=== PATIENT | female | born 1970 | race Caucasian/White ===

== ENCOUNTER 2021-11-08 06:36 | Day surgery (SDC) | payer OTHER ==
--- NOTE | 2021-11-06 09:30 | RAD REPORT ---
EXAM DESCRIPTION: RAD - Chest Pa And Lat (2 Views) - 11/06/2021 9:05 am CLINICAL HISTORY: Pre Op pending cholecystectomy Chest pain. COMPARISON: No comparisons FINDINGS: The lungs are clear. The heart is mildly enlarged in size. No displaced fractures.
[2021-11-06 09:36] LABS: Absolute Lymphocytes (CBC) 1.6 K/uL (0.7-4.9); Hematocrit 33.8 % (36.0-45.0); Lymphocytes % 28.1 % (15.3-44.8); MPV 9.7 fL (7.6-11.3); RBC Red Blood Cell Count 4.85 M/uL (3.86-4.86)
[2021-11-06 09:52] LABS: ALT/SGPT 26 U/L (12-78); AST/SGOT 11 U/L (15-37); Albumin 3.7 g/dL (3.4-5.0); Alkaline Phosphatase 49 U/L (45-117); Amylase 73 U/L (25-115); BUN Blood Urea Nitrogen 15 mg/dL (7-18); Bicarbonate 27 mmol/L (21-32); Bilirubin Direct < 0.1 mg/dL (0-0.2); Bilirubin Total 0.2 mg/dL (0.2-1.0); Glucose Level 99 mg/dL (74-106); Potassium 3.6 mmol/L (3.5-5.1); Protein, Total 7.2 g/dL (6.4-8.2); Sodium Level 141 mmol/L (136-145)
[2021-11-06 10:52] LABS: Anisocytosis 1+; Blood Morphology Comment NOTED (NOT SEEN); Hypochromasia 1+; Platelet Estimate ADEQ; White Blood Cell Scan OK (OK)
--- NOTE | 2021-11-07 07:49 | EKG ---
Test Date: 2021-11-06 Test Time: 08:46:10 Goring Cutter: MCKENNA MEASUREMENT RESULTS: Intervals: Rate: 55 WV: 160 QRSD: 108 QT: 450 QTc: 430 [place]: P: 31 WV: 160 QRS: -29 T: 37 INTERPRETIVE STATEMENTS: Sinus bradycardia Possible Anterior infarct, age undetermined Abnormal ECG No previous ECG available for comparison Electronically Signed On 11-07-21 07:45:49 DATA INTEGRATION DEVELOPER by Trenton Crowe
[2021-11-08] MEDS ORDERED: CEFOXITIN/NS 1gm 1 GM/50 ML BAG ONE (06:55)
[2021-11-08] MEDS ORDERED: Ringers Lactate 1,000 ML IV ONE ×2 (06:55→08:12)
[2021-11-08] MEDS ORDERED: CELECOXIB 100 MG CAPSULE ONE (07:04)
[2021-11-08] MEDS ORDERED: ACETAMINOPHEN 500 MG TAB ONE (07:04)
[2021-11-08] MEDS ORDERED: SCOPOLAMINE HYDROBROMIDE PATCH TD ONE ×2 (07:04→07:08)
[2021-11-08] MEDS ORDERED: ACETAMINOPHEN 500 MG TAB PO ONE (07:08)
[2021-11-08] MEDS ORDERED: CELECOXIB 100 MG CAPSULE PO ONE (07:08)
[2021-11-08] MEDS ORDERED: dexAMETHasone 10 MG/ML VIAL ONE (07:14)
[2021-11-08] MEDS ORDERED: LIDOCAINE 1% MPF 5 ML VIAL ONE (07:14)
[2021-11-08] MEDS ORDERED: propofoL 200 MG/20 ML VIAL IV ONE (07:14)
[2021-11-08] MEDS ORDERED: FENTANYL CITR 100 MCG/2 ML ONE ×3 (07:14→09:07)
[2021-11-08] MEDS ORDERED: MIDAZOLAM HCL 2 MG/2 ML INJ ONE (07:14)
[2021-11-08] MEDS ORDERED: ONDANSETRON 4 MG/2 ML VIAL ONE (07:15)
[2021-11-08] MEDS ORDERED: ROCURONIUM 50 MG/5 ML VIAL IV ONE (07:15)
[2021-11-08 07:29] LABS: Specific Gravity 1.025 (1.005-1.030)
[2021-11-08] MEDS ORDERED: GLYCOPYRROLATE 0.2 MG/ML SYR ONE ×2 (07:37→07:39)
[2021-11-08] MEDS ORDERED: KETOROLAC 30 MG/ML INJ ONE (08:25)
[2021-11-08 09:00] VITALS: O2SAT 100
[2021-11-08] MEDS: ONDANSETRON 4 MG/2 ML VIAL ONE ×2 (09:13→09:22)
--- NOTE | 2021-11-08 09:32 | OP ---
Date of Procedure: 11/08/2021 Surgeon: Misael Carney MD Feed Mixer: TOM Rogel. Preoperative Diagnoses: Chronic cholecystitis and cholelithiasis. Postoperative Diagnoses: Chronic cholecystitis and cholelithiasis. Procedure: Laparoscopic cholecystectomy. Estimated Blood Loss: Minimal. Specimen: Gallbladder. Finding: As above. Anesthesia: General. Complications: None. Disposition: The patient tolerated the procedure in stable condition and taken to Recovery in good g eneral condition. Procedure In Detail: The patient was brought to the OR, placed in supine position. General anesthes ia begun. The patient was prepped and draped in the usual sterile fashion. Marcaine 0.5% was infilt rated locally. A 15-blade was used to make a 1 cm supraumbilical midline incision. Subcutaneous tis jatin divided. Fascia identified and divided. A #1 Vicryl stay suture was placed. Peritoneal cavity entered with blunt dissection. A 12 mm trocar placed into the peritoneal cavity under direct vision. Pneumoperitoneum was established and then 3 5 mm trocars placed, 1 in the epigastrium just to the r ight of midline and 2 in the right subcostal region. Laparoscopy revealed chronic inflammation of th e gallbladder with some omental adhesions, which were taken down with sharp and blunt dissection. Bl eeding controlled with cautery. Fundus identified and retracted superiorly. Infundibulum identified and retracted inferolaterally. Cystic duct and cystic artery were clearly identified with blunt dis section. Clips placed. Both structures divided. Cautery was used to remove the gallbladder from th e liver bed. Bleeding on the liver bed controlled with cautery. Gallbladder was retrieved through t he umbilicus via an EndoCatch bag. Right upper quadrant was irrigated. Effluent was clear. No evid ence of bleeding or bile leakage appreciated. Subsequently, all trocars were removed under direct vi lio. There was minimal oozing from the middle right subcostal trocar site, which was cauterized and complete resolution of that tissue was done. No evidence of bleeding was noted. Then, all trocars were removed under direct vision. Stay sutures were tied to each other to approximate the fascial de fect. Subcutaneous wounds were irrigated. Bleeding controlled with cautery. A 3-0 chromic used to approximate subcutaneous tissue and close the skin. Sterile dressing applied. The patient was awake luann and taken to Recovery in good general condition. Discharge Note: The patient will go to Day Surgery and home when stable. Disposition: Home. Condition: Stable. Discharge Instructions: Resume home medications and diet. Activity as tolerated. No heavy lifting. Remove outer dressing in 2 days. Shower. Keep wound clean and dry. Follow up in my office in 1 w [place]. Call for appointment. Tylenol No.3 one tablet p.o. q.4 p.r.n. pain. Incentive spirometry as o rdered. /MODL Voice ID: [id number] Report ID: [id number]
[2021-11-08] MEDS ORDERED: HYDROCODONE/APAP 7.5/325 MG TAB ONE (09:45)
[2021-11-08 10:29] VITALS: BP 140/74; TEMP 97
== END 2021-11-08 10:20 | disposition home or self-care (01) ==
LOC: OR 06:36
PROVIDERS: ATTEND Surgery
PROC: 0FT44ZZ Resection of Gallbladder, Percutaneous Endoscopic Approach (ICD-10-PCS; principal; 2021-11-08 07:30)
DX: K80.10 Calculus of gallbladder with chronic cholecystitis without obstruction (principal); Z20.822 Contact with and (suspected) exposure to COVID-19
CPT/HCPCS: 93005; 85025; 80048; 36415; 82150; 81025; 80076; 88304; 71046; 47562; U0003; J2704; J2250; J3010 ×3; J1100; J7120 ×2; J0694; J2405 ×2